=== PATIENT | female | born 1985 | race African-American/Black ===

== ENCOUNTER 2016-11-07 22:08 | Emergency (ER) | payer OTHER, MEDICAID ==
[~2016-11-07] VITALS: Ht 167.6 cm; Wt 85.0 kg
[~2016-11-07 22:08] MED LIST: ALPR0.5T3 PO; CLON0.2T PO; CYCL1TAB29 PO; GABA100C4 PO; HYDR-3583 PO; HYDR25TA5 PO; NIFE30TA61 PO; OXYC-395 PO; PANT40TA3 PO; POTA-245 PO
[2016-11-07 22:14] VITALS: BP 201/130; PULSE 104; RESP 18; TEMP 98.5; O2SAT 100
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
[2016-11-07] MEDS ORDERED: GABA100C4 PO (22:23)
[2016-11-07] MEDS ORDERED: GABA400C5 PO (22:23)
[2016-11-07] MEDS ORDERED: HYDR-3583 PO (22:23)
[2016-11-07] MEDS ORDERED: ACETAMINOPHEN 500 MG CPLT PO ONE (22:30)
== END 2016-11-07 22:55 | disposition home or self-care (01) ==
LOC: NEPE 22:08
DX: S16.1XXA Strain of muscle, fascia and tendon at neck level, initial encounter (principal); V87.7XXA Person injured in collision between other specified motor vehicles (traffic), initial encounter; I10 Essential (primary) hypertension; Z85.3 Personal history of malignant neoplasm of breast
CPT/HCPCS: 99282